=== PATIENT | female | born 1985 | race African-American/Black ===

== ENCOUNTER 2020-05-23 04:40 | Emergency (ER) | payer OTHER, SELFPAY ==
--- NOTE | ~2020-05-23 | CT_ITS ---
EXAMINATION: CT brain wo con DATE: 05/23/2020 05:56 INDICATION: Headache, dizziness. Cocaine overdose. TECHNIQUE: Computed tomography (CT) of the head was performed without intravenous contrast. The mA wa s adjusted according to patient size. Iterative reconstruction technique was employed. Exam dose: 60 5.33 mGy-cm total exam DLP. COMPARISON: None FINDINGS: No intracranial mass lesion or hemorrhage, midline shift or mass effect. Normal marie-white matter differentiation. Normal ventricular size. No subdural or epidural hematoma. No fracture or bone destruction of the cranial vault. Included paranasal sinuses and mastoid air cell s are unremarkable. IMPRESSION: No acute intracranial abnormality. Reviewed, dictated and finalized at location A. D RAIL INSTALLER
--- NOTE | ~2020-05-23 | XR_ITS ---
EXAMINATION: XR chest 1V portable 05/23/2020 05:57 INDICATION: Shortness of breath after overdose PROCEDURE: AP portable chest COMPARISON: No prior studies for comparison. FINDINGS: The lungs are clear. The cardiomediastinal silhouette is within normal limits. There are no pleural effusions. There is no pneumothorax suspected. IMPRESSION: 1: NO ACUTE CARDIOPULMONARY DISEASE. Reviewed, dictated and finalized at location A. H CLUB AGENT
[2020-05-23 04:40] VITALS: BP 124/87; PULSE 96; RESP 20; TEMP 36.7; O2SAT 99
--- NOTE | 2020-05-23 04:55 | ECG_ITS ---
Measurements Intervals [place] Rate: 81 P: 73 MD: 310 QRS: 82 QRSD: 87 T: 41 QT: 406 QTc: 472 Interpretive Statements SINUS RHYTHM WITH FIRST DEGREE AV BLOCK BORDERLINE T WAVE ABNORMALITY- ANT/INF LEADS ABNORMAL ECG Electronically Signed On 05-23-2020 7:30:27 PARASITOLOGY TEACHER by Rizwan Antoine D.O.
[2020-05-23 05:19] LABS: Basophils Absolute Auto 0.02 K/mm3 (0.00-0.10); Basophils Percent Auto 0.4 % (0.0-1.0); Eosinophils Absolute Auto 0.02 K/mm3 (0.02-0.50); Eosinophils Percent Auto 0.4 % (1.0-6.0); Hematocrit 39.5 % (35.0-49.0); Hemoglobin 12.7 g/dL (12.0-15.0); Immature Granulocyte Absolute 0.01 K/mm3 (0.00-0.00); Immature Granulocyte Percent A 0.2 % (0.0-0.0); Lymphocytes Absolute Auto 0.66 K/mm3 (1.10-4.50); Lymphocytes Percent Auto 12.1 % (18.0-42.0); Mean Corpuscular HGB Conc 32.2 g/dL (32.0-36.0); Mean Corpuscular Hemoglobin 29.1 pg (27.0-31.0); Mean Corpuscular Volume 90.4 fL (78.0-102.0); Mean Platelet Volume 8.9 fl (9.2-11.8); Monocytes Absolute Auto 0.43 K/mm3 (0.10-0.90); Monocytes Percent Auto 7.9 % (2.0-11.0); Neutrophils Absolute Auto 4.3 K/mm3 (1.7-7.2); Platelet Count Result 295 K/mm3 (150-420); Red Blood Count 4.37 M/mm3 (4.20-5.40); Red Cell Distribution Width 13.8 % (11.6-14.4); White Blood Count 5.5 K/mm3 (4.8-10.8)
[2020-05-23 05:21] LABS: Add Urine Microscopic? YES; Appearance Urine Clear (Clear); Bilirubin Urine Negative (Negative); Blood Urine Negative (Negative); Color Urine Yellow (Yellow); Glucose Urine UA Negative (Negative); Ketones Urine 1+ (Negative); Leukocyte Esterase Ur Negative LEU/UL (Negative); Nitrate Urine Negative (Negative); Protein Urine Negative (Negative); Specific Grav Ur >= 1.030 (1.010-1.020); Urobilinogen Urine 0.2 mg/dL (0.2-1.0)
[2020-05-23 05:27] LABS: Pregnancy On Board Control Positive; Urine Pregnancy Test Negative
[2020-05-23 05:32] LABS: Amorphous Sediment Urine Moderate; Amphetamine Screen Urine Positive (Negative); Barbiturate Screen Urine Negative (Negative); Benzodiazepines Screen Urine Negative (Negative); Cannabinoid Screen Urine Positive (Negative); Cocaine Screen Urine Positive (Negative); Methadone Screen Urine Negative (Negative); Opiate Screen Urine Positive (Negative); Phencyclidine Screen Urine Negative (Negative); RBC Urine 0-2 /hpf (0-2); Squamous Epithelial Cell Urine Few /hpf (Few); WBC Urine 0-3 /hpf (0-3)
[2020-05-23 05:33] LABS: Bacteria Urine 4+ /hpf
[2020-05-23 05:37] LABS: Partial Thromboplastin Time 22.6 SEC (22.3-31.6); Prothrombin Time 10.3 Seconds (9.64-11.0)
--- NOTE | 2020-05-23 05:40 | PC.NURSE ---
0530 pt to xray per wheelchair with xray staff. 0540 pt returned to room.
[2020-05-23 05:42] LABS: Lactic Acid Reflex 1.6 mmol/L (0.4-2.0)
[2020-05-23 05:53] LABS: Alanine Aminotransferase 23 U/L (14-59); Albumin Level 3.6 g/dL (3.4-5.0); Alkaline Phosphatase 64 U/L (46-116); Anion Gap 8 mmol/L (8-16); Aspartate Amino Transferase 30 U/L (15-37); Bilirubin,Total 0.6 mg/dL (0.00-1.00); Blood Urea Nitrogen 16 mg/dL (7-18); Calcium 8.9 mg/dL (8.5-10.1); Carbon Dioxide 28 mmol/L (21-32); Chloride 104 mmol/L (98-108); Creatine Kinase 231 U/L (26-192); Estimated CRCL calculation 85 ml/min; Estimated Glomerular Filt Rate > 60; Glucose 72 mg/dL (70-99); Osmolality Calculated 290 mOsm/kg (285-295); Potassium 4.6 mmol/L (3.5-5.1); Salicylate 2.7 mg/dL (2.8-20.0); Sodium 140 mmol/L (136-145); Thyroid Stimulating Hormone 1.12 uIU/mL (0.36-3.74); Total Protein 7.4 g/dL (6.4-8.2)
[2020-05-23 05:55] LABS: Acetaminophen < 1 ug/mL (10-30); Ammonia < 10 umol/L (11-32); Ethanol < 3 mg/dL (0-6); Troponin I < 0.02 ng/mL (0.00-0.056)
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
--- NOTE | 2020-05-23 06:13 | PC.NURSE ---
pt resting per cot, no chills, denies headache, denies nausea, no vomiting since arrival to er. attempting to find ride.
[2020-05-23 06:48] VITALS: BP 98/53; PULSE 84; RESP 20; TEMP 36.9; O2SAT 98
--- NOTE | 2020-05-23 06:50 | PC.NURSE ---
multiple attempt to call numbers for pt for ride home for her and her friend. unsuccessful at this time.
[2020-05-23 08:14] VITALS: BP 123/71; PULSE 88; RESP 16; TEMP 36.6; O2SAT 98
== END 2020-05-23 08:40 | disposition home or self-care (01) ==
PROVIDERS: Emergency Provider Family Medicine
DX: F14.10 Cocaine abuse, uncomplicated (principal); F15.10 Other stimulant abuse, uncomplicated; F11.10 Opioid abuse, uncomplicated
CPT/HCPCS: 36415; 70450; 71045; 80053; 80307; 81001; 81025; 82140; 82550; 82553; 83605; 84443; 84484; 85025; 85610; 85730; 93005; 99283; 99284